=== PATIENT | male | born 1950 | race Caucasian/White ===

== ENCOUNTER 2019-09-28 10:40 | Emergency (ER) | payer OTHER ==
[~2019-09-28] VITALS: Ht 173 cm; Wt 114.0 kg
[2019-09-28 10:45] VITALS: BP 133/65
--- NOTE | 2019-09-28 10:48 | NUR ---
Pt stated [facility], but [facility] could not take me straight up there, so they brought me here. Pt stated he doesn't have a ride to [facility], so he called EMS. He stated he wants to go to [facility]. explained that he has to have a medical reason/emergency to be taken to [facility] in . Pt stated to call [facility] and let them know who I am and that the [facility] will pay for the [facility]. Pt was explained again that he has to have a medical reason/emergency to go [facility] to [facility]. [facility] .
--- NOTE | 2019-09-28 10:50 | ED Lower Extremity ---
General Chief Complaint: Lower Extremity Stated Complaint: LT LEG PAIN History of Present Illness Date Seen by Provider: September 28, 2019 Time Seen by Provider: 10:47 Initial Comments Patient presents to the ER via EMS with intent to be transferred to the [facility] in to be seen for his left leg and foot pain. Has an appointment to be seen there on 30 September. States history of more than 1 bypass of his left leg for circulation problems. He says his house keeper said the bottom of his foot looked li. He called a nurse at "the [facility]" and he was advised to go to the ER to get transportation to the [facility] in . Denies swelling or change of color. States feet are always cold, but he doesn't wear socks. Having trouble walking and uses a cane. Allergies and Home Medications Home Medications Unable to Obtain Active Prescriptions or Reported Meds Patient Home Medication List Home Medication List Reviewed: Yes Review of Systems Constitutional: see HPI; No fever, No malaise, No weakness Cardiovascular: No chest pain, No edema, No palpitations, No syncope Gastrointestinal: No abdominal pain, No vomiting Musculoskeletal: No back pain; other (left > right foot pain) Skin: No change in color (chronic changes, no acute change), No rash Psychiatric/Neurological: Numbness (both feet) Past Galfomo-Kwxtgd-Eqmesq Hx Past Med/Social Hx: Reviewed Nursing Past Med/Soc Hx Physical Exam Vital Signs Capillary Refill : Height, Weight, BMI Height: '" Weight: lbs. oz. kg; BMI Method: General Appearance: WD/WN, no apparent distress Cardiovascular: no edema exam b/l LE's- no gross deformity. no edema. Poor pulses and fair cap refill of feet and toes. NO dusky appearance. symmetrical appearance of both legs and feet. functional ROM, sensation intact. Left foot w slight tenderness to palp. no ulcerations. Progress/Results/Core Measures Progress Progress Note : Progress Note patient adamant that he was told to come to the ER and we would get him a ride to to be seen earlier at the [facility]. Explained to him that he did not have a medical emergency requiring an ambulance ride to . He stated that he was told that the [facility] would pay for it. I explained that the [facility] would pay for it in a normal transfer for admission to another hospital (or [facility]) for an admission or for emergent surgical procedure. Explained to him that although he had a chronic disorder (PVD), he did not have a medical emergency requiring an emergent transfer for care at another facility. We do not transfer from the ER to outpatient care / services. Advised pt to stay in communication with his [facility] clinic providing vascular care services regarding his desire to be seen prior to his scheduled appt on 30 September. Departure Impression Primary Impression: Peripheral vascular disease Disposition: 01 HOME, SELF-CARE Condition: Stable Departure-Patient Inst. Decision time for Depature: 10:49 Patient Instructions: Peripheral Vascular (Arterial) Disease (DC) Add. Discharge Instructions: Follow up with the [facility] in [place] as scheduled for you on Friday All discharge instructions reviewed with patient and/or family. Voiced understanding. Scripts Unable to Obtain Active Prescriptions or Reported Meds PAUL BENAVIDEZ DO September 28, 2019 10:50
== END 2019-09-28 10:54 | disposition home or self-care (01) ==
LOC: ER FS 10:41
DX: I73.9 Peripheral vascular disease, unspecified (principal)
CPT/HCPCS: 99283